=== PATIENT | female | born 2005 | race Caucasian/White ===

== ENCOUNTER 2024-06-01 00:19 | Emergency (ER) | payer OTHER, SELFPAY ==
[2024-06-01 00:22] VITALS: BP 131/86; PULSE 77; RESP 16; TEMP 36.6; O2SAT 100
--- NOTE | 2024-06-01 00:24 | ED_ITS ---
HPI - Eye Problem General Chief complaint: Eye Problems Stated complaint: eye issues Time Seen by Provider: 06/01/24 00:24 Source: patient and family Mode of arrival: ambulatory Limitations: no limitations History of Present Illness HPI Narrative: Patient is a 18-year-old female with a right eye pain and inflammation this evening. She thinks that she is having a scratch to the cornea as it feels the same as the prior scratch the cornea. She has a lot of watery discharge from the right eye. chief complaint: eye pain, eye redness and eye injury ( Contacts) Onset (ago): hour(s) (3) Onset description: sudden ( this evening) Duration: constant Location: right eye Eye Symptoms: burning, redness and pain Place: home Mechanism: other ( contacts; patient removed and is wearing glasses at this time) Severity: moderate Severity scale (1-10): 4 If Pain, Quality: burning and throbbing Context: contact lens use Associated symptoms: none Treatments Prior to Arrival: none Related Data Patient tetanus UTD: Yes Allergies Allergy/AdvReac Type Severity Reaction Status Date / Time No Known Allergies Allergy Verified 06/01/24 00:29 Review of Systems Review of Systems: All systems reviewed & are unremarkable except as noted in HPI and below Constitutional: Constitutional: Reports no additional constitutional complaints Eyes: Eyes: Reports no additional eye complaints ENT: Reports system reviewed and no additional complaints, except as documented Cardiovascular: Cardiovascular: Reports no additional cardiovascular complaints Respiratory: Respiratory: Reports no additional respiratory complaints Gastrointestinal: Gastrointestinal: Reports no additional gastrointestinal complaints Genitourinary: Genitourinary: Reports no additional female genitourinary complaints Musculoskeletal: Musculoskeletal: Reports no additional musculoskeletal complaints Integumentary/Breasts: Skin/Breast: Reports system reviewed and no additional complaints, except as docu Neurologic: Reports system reviewed and no additional complaints, except as documented Psychiatric: Psychiatric: Reports no additional psychiatric complaints Endocrine: Endocrine: Reports no additional endocrine complaints Hematologic/Lymphatic: Hematologic/Lymphatic: Reports no additional hemato logic/lymphatic complaints Allergic/Immunologic: Allergic/Immunologic: Reports no additional allergic/immunologic complaints Exam Const: General: healthy appearing Nutritional Appearance: well nourished Orientation/consciousness: patient oriented x3 HENMT: Head: normal to inspection Ears: external ears normal Face/Nose/Sinus: Normal external nose present Eyes: Conjunctivae: conjunctivae normal Pupils: Equal, round and reactive pupils present EOM: EOMs intact bilaterally Other: right eye is red conjunctiva and inflammation with 5 o'clock position corneal abrasion; tetracaine was placed for topical anesthesia and fluorescein stain used for confirmation and shows a 5 o'clock position corneal abrasion Neck: Neck: normal visual inspection Chest: Chest palpation & inspection: normal inspection of the chest Resp: Effort & Inspection: normal respiratory effort and not labored Auscultation: clear to auscultation bilaterally and no crackles Cardio: Rate: regular rate Rhythm: regular rhythm Heart sounds: no murmurs GI: Inspection: non-distended GI Palp: Yes Soft to palpation and No Tenderness to palpation present (GI) Auscultation: normal bowel sounds : General: Yes bladder normal to palpation Back/Spine/Pelvis: Back: no CVA tenderness Skin: General skin exam: normal color Rashes: no rashes Wounds: no wounds Neuro: General: patient oriented x3 Cranial nerves: Yes Nystagmus not present Speech: normal speech Extrem: General: normal to inspection Psych: Mental Status: mental status grossly normal Affect: normal affect Attitude: cooperative Course Vital Signs Vital signs: Vital Signs Oxygen Delivery Room Air 06/01/24 00:19 Temperature 36.6 C 06/01/24 00:22 Pulse Rate 77 06/01/24 00:22 Respiratory Rate 16 06/01/24 00:22 Blood Pressure 131/86 06/01/24 00:22 Pulse Oximetry 100 06/01/24 00:22 Oxygen Delivery Room Air 06/01/24 00:22 Procedures Other Procedure Procedure 1: Other Procedure: Right eye examination: Tetracaine anesthesia, fluorescein stain, 5 o'clock position irregular corneal abrasion MDM - Eye Problem MDM Narrative Medical decision making narrative: patient is a 18-year-old female with a right eye conjunctivitis and corneal abrasion. We will start Maxitrol tonight and give her a script for Maxitrol tomorrow. Discharge Plan Discharge Clinical Impression: Corneal abrasion Qualifiers: Encounter type: initial encounter Laterality: right Qualified Code(s): S05.01XA - Injury of conjunctiva and corneal abrasion without foreign body, right eye, initial encounter Patient Disposition: Home, Self-Care Condition: Stable Instructions: Antibiotic Form, Corneal Abrasion (ED) Prescriptions: New neomycin-polymyxin B-dexameth [Maxitrol] 3.5mg/mL-10,000 unit/mL-0.1 % drops,suspension 2 drp RIGHT EYE TID 7 Days Qty: 5 0RF Follow-up/Referrals: Jaspreet Rey MD [Primary Care Provider] - Time of Disposition: 01:01
[2024-06-01] MEDS: TETRACAINE HCL 0.5% OPHTH SOLN 4 ML BTL 1 DROP RIGHT EYE (00:53)
[2024-06-01] MEDS: FLUORESCEIN SOD 1 MG/STRIP RIGHT EYE (00:53)
[2024-06-01] MEDS: NEOMYCIN/POLYMYXIN/DEXAMETH OP SUSP 5 ML BTL 2 DROP RIGHT EYE (01:24)
[2024-06-01 01:27] VITALS: BP 130/85; PULSE 75; RESP 16; TEMP 36.6; O2SAT 100
== END 2024-06-01 01:27 | disposition home or self-care (01) ==
PROVIDERS: Emergency Provider Emergency Medicine; PCP Internal Medicine
DX: S05.01XA Injury of conjunctiva and corneal abrasion without foreign body, right eye, initial encounter (principal); X58.XXXA Exposure to other specified factors, initial encounter
CPT/HCPCS: 99283; A9270